=== PATIENT | male | born 1980 | race Caucasian/White ===

== ENCOUNTER 2016-06-30 08:04 | Emergency (ER) | payer SELFPAY ==
[2016-06-30 08:12] VITALS: BP 122/68
--- NOTE | 2016-06-30 08:37 | UC ---
Eye Complaint HPI - HPI Summary HPI Summary: WAS WORKING ON HIS CAR AT HOME 3 DAYS AGO - GRINDING A FENDER WHEN HE FELT A FB GO IN HIS RIGHT EYE. HAS BEEN RUBBING IT. IS STILL THERE. PAIN IS WORSE. VISION IS A LITTLE BLURRY OUT OF RIGHT EYE. - History of Current Complaint Chief Complaint: UCEye Stated Complaint: FB IN EYE Time Seen by Provider: 06/30/16 08:35 Hx Obtained From: Patient Onset/Duration: Sudden Onset, Lasting Days, Still Present Timing: Constant Severity Initially: Moderate Severity Currently: Moderate Pain Intensity: 6 Pain Scale Used: 0-10 Numeric Location of Injury: Conjunctiva Aggravating Factor(s): Blinking Alleviating Factor(s): Nothing Associated Signs And Symptoms: Positive: Drainage (Clear), Vision Impairment Right - Allergies/Home Medications Allergies/Adverse Reactions: Allergies Allergy/AdvReac Type Severity Reaction Status Date / Time No Known Allergies Allergy Verified 06/30/16 08:12 Home Medications: Home Medications NK [No Home Medications Reported] 06/30/16 [History Confirmed 06/30/16] PMH/Surg Hx/FS Hx/Imm Hx Previously Healthy: Yes Endocrine History Of: Denies: Diabetes, Thyroid Disease Cardiovascular History Of: Denies: Cardiac Disorders, Hypertension Respiratory History Of: Denies: COPD, Asthma GI/ History Of: Denies: Ulcer - Surgical History Surgical History: None - Family History Known Family History: Positive: Hypertension - Social History Alcohol Use: None Substance Use Type: Other 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 Smoking Status (MU): Former Smoker Type: Cigarettes Review of Systems Constitutional: Negative Eyes: Blurred Vision, Drainage, Eye Redness, Other - FB SENSATION ENT: Negative Respiratory: Negative Cardiovascular: Negative Gastrointestinal: Negative All Other Systems Reviewed And Are Negative: Yes Physical Exam Triage Information Reviewed: Yes Appearance: Well-Appearing, Well-Nourished, Pain Distress - MILD Vital Signs: Initial Vital Signs Temp 98.6 F 06/30/16 08:10 Pulse 67 06/30/16 08:10 Resp 16 06/30/16 08:10 BP 122/68 06/30/16 08:10 Pulse Ox 98 06/30/16 08:10 Vital Signs Reviewed: Yes Eyes: Positive: Conjunctiva Inflamed - RIGHT, Discharge - CLEAR TEARING RIGHT EYE, Other: - FB VISIBLE RIGHT CORNEA OUTER LOWER QUADRANT WITH OPACITY ADJACENT ENT: Positive: Hearing grossly normal Neck: Positive: Supple Respiratory: Positive: No respiratory distress, No accessory muscle use Cardiovascular: Positive: Pulses Normal Abdomen Description: Positive: Soft Musculoskeletal: Positive: No Edema Neurological: Positive: Alert Psychological: Positive: Age Appropriate Behavior Skin: Negative: rashes Eye Complaint Course/Dx - Course Course Of Treatment: PT WITH RIGHT CORNEAL FB WITH ADJACENT OPACITY CONCERNING FOR CORNEAL ULCERATION. APPT WITH DR. STAPLES (OPH) TODAY AT 11:30AM. - Differential Dx/Diagnosis Provider Diagnoses: CORNEAL FOREIGN BODY, CORNEAL OPACITY Discharge - Discharge Plan Condition: Stable Disposition: HOME Patient Education Materials: Eye Foreign Body (ED) Referrals: Wilfred Staples MD [Medical Doctor] - Additional Instructions: GIVEN HOW LONG THE FOREIGN BODY HAS BEEN IN YOUR EYE AND THE ADJACENT OPACITY CONCERNING FOR ULCERATION IT IS RECOMMENDED THAT YOU SEEK CARE WITH AN ERADICATOR. APPT WITH DR. STAPLES TODAY AT 11:30AM.
[2016-06-30] MEDS ORDERED: Tetracaine 0.5% OPTH.SOL 4 ML* 1 DROP BTL RIGHT EYE ONE (08:42)
== END 2016-06-30 09:13 | disposition home or self-care (01) ==
LOC: UCEAST 08:04
DX: T15.01XA Foreign body in cornea, right eye, initial encounter (principal); X58.XXXA Exposure to other specified factors, initial encounter; Y93.89 Activity, other specified; Y92.9 Unspecified place or not applicable; Z87.891 Personal history of nicotine dependence
CPT/HCPCS: 99211; A9270-GY; G0463